=== PATIENT | male | born 1965 | race Caucasian/White ===

== ENCOUNTER → 2021-08-04 11:47 | Outpatient (CLI) | payer BC, SELFPAY ==
--- NOTE | 2021-08-04 | DI.RAD.S_ITS ---
PROCEDURE: XR CERVICAL SPINE 4V OR 5V INDICATIONS: sprain of ligaments of cervical spine TECHNIQUE: 5 views of the cervical spine were acquired. COMPARISON: None. FINDINGS: Bones: No fractures or dislocations to the T1 level. No suspicious bony lesions. There is normal range of motion between flexion and extension, with preserved normal bony alignment. C5-6 interbody fusion noted. Flexion extension images show no evidence of segmental instability. Disc space narrowing and anterior osteophyte present at C4-5. Soft tissues: Prevertebral soft tissues are normal in thickness. IMPRESSION: 1. No evidence of segmental instability 2. Well-healed C5-6 interbody fusion Approved by: Alejandro Guzman M.D. on 08/04/2021 at 14:18
== END ==
PROVIDERS: PCP Internal Medicine; Referring Provider Chiropractor; Visit Provider Chiropractor
DX: S13.4XXA Sprain of ligaments of cervical spine, initial encounter (principal); S16.1XXA Strain of muscle, fascia and tendon at neck level, initial encounter; M50.11 Cervical disc disorder with radiculopathy, high cervical region; S06.2X1A Diffuse traumatic brain injury with loss of consciousness of 30 minutes or less, initial encounter; X58.XXXA Exposure to other specified factors, initial encounter; Z98.1 Arthrodesis status
CPT/HCPCS: 72050